=== PATIENT | male | born 1955 | race Caucasian/White ===

== ENCOUNTER 2022-07-28 11:30 | Observation (INO) ==
[2022-07-28 10:39] VITALS: BMI 41.1
[~2022-07-28 11:30] MED LIST: ANCEF VIAL 1 GRAM ONE; BRIDION ONE; DIPRIVAN VIAL 20 ML ONE; FENTANYL VIAL INJ 100 mcg ONE; LR 1,000 ML IV 1,000 ML IV ONE; NS 100 ML IV 100 ML ONE; PEPCID 20 MG VIAL ONE; REGLAN INJ 10 MG VIAL ONE; TORADOL 30 MG VIAL ONE; ULTANE GAS IN ONE; VERSED ONE; XYLOCAINE 2 % (PLAIN) ONE; ZEMURON 100 MG VIAL ONE; ZOFRAN INJ 4 MG VIAL ONE
[2022-07-28] MEDS ORDERED: MARCAINE 0.25% INJ ONE (11:53)
[2022-07-28] MEDS ORDERED: FENTANYL VIAL INJ 250 mcg ONE (13:05)
[2022-07-28] MEDS ORDERED: EPHEDRINE SULFATE INJ ONE (13:18)
[2022-07-28] MEDS ORDERED: REGLAN INJ 10 MG VIAL IVP PRN (13:18)
[2022-07-28] MEDS ORDERED: DILAUDID INJ IVP PRN (13:18)
[2022-07-28] MEDS ORDERED: ZOFRAN INJ 4 MG VIAL IVP PRN ×2 (13:18→15:38)
[2022-07-28] MEDS ORDERED: BENADRYL INJ 50 MG VIAL IVP PRN (13:18)
[2022-07-28] MEDS ORDERED: BARHEMSYS INJ IVP PRN (13:18)
[2022-07-28] MEDS ORDERED: LR 1,000 ML IV 1,000 ML IV ONE (13:48)
[2022-07-28] MEDS ORDERED: OFIRMEV IV 1000 MG VIAL 1,000 MG/100 ML VIAL IV ONE (13:48)
[2022-07-28] MEDS ORDERED: TYLENOL 325 MG TAB PO PRN (15:38)
[2022-07-28] MEDS ORDERED: SUPRANE ONE (15:39)
[2022-07-28] MEDS ORDERED: ULTANE GAS IN ONE (15:40)
[2022-07-28] MEDS: TORADOL 30 MG VIAL IVP SCH ×2 (17:52→22:12)
[2022-07-28] MEDS ORDERED: GLUCOPHAGE ONE (20:18)
[2022-07-28] MEDS: CATAPRES TAB 0.3 MG PO SCH (20:46)
[2022-07-28] MEDS: GLUCOPHAGE PO SCH (20:47)
[2022-07-28] MEDS: NEURONTIN CAP 300 MG PO SCH (20:47)
[2022-07-28] MEDS: LANTUS SC SCH (20:52)
[2022-07-28] MEDS ORDERED: CATAPRES TAB 0.3 MG PO SCH (21:00)
[2022-07-28] MEDS ORDERED: CRESTOR TAB 10 MG PO SCH (21:00)
[2022-07-28] MEDS ORDERED: NORVASC TAB 10 MG PO SCH (21:00)
[2022-07-28] MEDS ORDERED: COLACE CAP 100 MG PO SCH (21:00)
[2022-07-28] MEDS ORDERED: INSULIN GLARGINE SUBCUT SCH (21:00)
[2022-07-28] MEDS: NORMODYNE TAB 200 MG PO SCH (21:07)
[2022-07-28] MEDS ORDERED: LABETALOL 300 MG PO SCH (22:00)
[2022-07-28] MEDS: PERCOCET TAB 5/325 MG PO PRN (23:49)
[2022-07-29] MEDS: TORADOL 30 MG VIAL IVP SCH ×2 (03:18→10:05)
[2022-07-29] MEDS: DILAUDID INJ IVP PRN ×2 (04:09→14:59)
[2022-07-29] MEDS: NORMODYNE TAB 200 MG PO SCH ×2 (05:07→13:54)
[2022-07-29 05:26] LABS: BLOOD UREA NITROGEN 16 mg/dL (7-18); CALCIUM 8.1 mg/dL (8.5-10.1); CARBON DIOXIDE 32.1 mmol/L (21-32); CHLORIDE 101 mmol/L (98-107); CREATININE 1.08 mg/dL (0.70-1.30); GLUCOSE 106 mg/dL (65-99); POTASSIUM 3.3 mmol/L (3.5-5.1); SODIUM 138 mmol/L (136-145); eGFR NON BLACK RACES > 60 (>60)
[2022-07-29] MEDS ORDERED: K-DUR TAB 20 MEQ PO PRN (05:33)
[2022-07-29] MEDS ORDERED: KLOR-CON PO PRN (05:33)
[2022-07-29] MEDS ORDERED: POTASSIUM CHL 60 MEQ/NS 0.45% 500 ML IV PRN (05:33)
[2022-07-29] MEDS ORDERED: POTASSIUM CHLORIDE LIQ 20 MEQ UDC PO PRN (05:33)
[2022-07-29] MEDS ORDERED: MICRO K EXTEN CAP 10 MEQ PO PRN (05:33)
[2022-07-29] MEDS ORDERED: POTASSIUM CHL 40 MEQ/NS 0.45% 500 ML IV PRN (05:33)
[2022-07-29] MEDS ORDERED: K-RIDER 10 MEQ/NS 100 ML 10 MEQ/100 ML BAG IV PRN (05:33)
[2022-07-29] MEDS ORDERED: GLUCOPHAGE ONE (07:48)
[2022-07-29] MEDS ORDERED: NS 250 ML IV 250 ML IV ONE (08:12)
[2022-07-29] MEDS: CATAPRES TAB 0.3 MG PO SCH (08:16)
[2022-07-29] MEDS: GLUCOPHAGE PO SCH (08:17)
[2022-07-29] MEDS: NEURONTIN CAP 300 MG PO SCH (08:18)
[2022-07-29] MEDS: LANTUS SC SCH (08:18)
[2022-07-29] MEDS: PERCOCET TAB 5/325 MG PO PRN (08:20)
[2022-07-29] MEDS: MAGNESIUM SULFATE 1 GRAM/100 mL PREMIX 1 G/100 ML BAG IV PRN ×2 (08:20→10:05)
[2022-07-29] MEDS ORDERED: LOVENOX INJ 40 MG SYR SC SCH (09:00)
[2022-07-29] MEDS ORDERED: PATIENT'S HOME MEDICATION (Mecobalamin (Vitamin B12) [B12 Active] 1,000 mcg Tablet,Chewabl PO SCH (09:00)
[2022-07-29] MEDS ORDERED: FINERENONE 20 MG PO SCH (09:00)
[2022-07-29] MEDS ORDERED: CHLORTHALIDONE PO SCH (09:00)
[2022-07-29] MEDS ORDERED: DIOVAN TAB 160 MG PO SCH (09:00)
[2022-07-29] MEDS ORDERED: CHOLECALCIFEROL PO SCH (09:00)
[2022-07-29] MEDS ORDERED: VALSARTAN HYDROCHLOROTHIAZIDE PO SCH (09:00)
[2022-07-29] MEDS ORDERED: VITAMIN D3 125 mcg (5,000 UNITS) PO SCH (09:00)
[2022-07-29] MEDS ORDERED: VITAMIN B-12 PO SCH (09:00)
[2022-07-29 13:06] VITALS: BP 144/76; PULSE 80; TEMP 98.3; O2SAT 97
--- NOTE | 2022-07-29 14:03 | PCM.PROG ---
Progress Note Progress Note for Day of Date of Exam: 07/29/22 Subjective Subjective: Patient is alert and awake this morning. He reports that his left foot is hurting him but is controlled when he takes the medication for pain. Yesterday he had a ankle fusion, tenotomy of the left Achilles tendon and subtalar hindfoot fusion. He also had a soft tissue mass removed from the left ankle as well. He was kept overnight for pain control and may be possibly going home later today per Dr. Jose Raul Walker. So his calcium was low this morning so we will check a vitamin D level. If it is low we will start him on replacement. Past Medical Family Social History Allergies: Allergies mussels Allergy (Verified 07/28/22 10:39) Review of Systems ROS: No change since H&P Vital Signs and I&O's Vital Signs: Temperature 98.3 F Pulse Rate [Left Brachial] 80 Pulse Rate 77 Respiratory Rate 20 Blood Pressure [Left Arm] 144/76 Blood Pressure 139/70 O2 Sat by Pulse Oximetry 97 Intake and Output: Intake & Output 07/27/22 07/28/22 07/29/22 07/30/22 11:59 11:59 11:59 11:59 Intake Total 5132 / 5132 Output Total 2950 / 2950 Balance 2182 / 2182 Physical Exam Oriented: Normal Eyes: Normal Nose: Normal Respiratory: Normal Cardiovascular: Normal Palpation: Normal Tenderness: Normal Psychiatric: Normal Mood Description: Calm Affect: Normal Speech Pattern: Clear and Appropriate Laboratory and Diagnostics Result Diagrams: 07/29/22 10:49 Labs: 07/28/22 12:59 Ankle - Left Wound Gram Stain - Final 07/28/22 12:59 Ankle - Left Wound Culture - Preliminary Laboratory Sodium 138 mmol/L (136-145) 07/29/22 04:25 Corrected Sodium TNP 07/29/22 04:25 Potassium 3.8 mmol/L (3.5-5.1) 07/29/22 10:49 Chloride 101 mmol/L (98-107) 07/29/22 04:25 Carbon Dioxide 32.1 mmol/L (21-32) H 07/29/22 04:25 BUN 16 mg/dL (7-18) 07/29/22 04:25 Creatinine 1.08 mg/dL (0.70-1.30) 07/29/22 04:25 Est GFR (MDRD) Af Amer > 60 (>60) 07/29/22 04:25 Est GFR (MDRD) Non-Af > 60 (>60) 07/29/22 04:25 Glucose 106 mg/dL (65-99) H 07/29/22 04:25 POC Glucose (mg/dL) 201 mg/dL (65-99) H 07/29/22 11:29 Uric Acid 6.3 mg/dL (3.5-7.2) 07/29/22 04:25 Calcium 8.1 mg/dL (8.5-10.1) L 07/29/22 04:25 Magnesium 1.8 mg/dL (2.0-2.9) L 07/29/22 04:25
--- NOTE | 2022-07-29 15:01 | NOTE.SOAP ---
Soap Note Note for Day of Date of Exam: 07/29/22 Subjective Data Subjective Data: PT seen bedside with nurse. maria luisa bedside. doing well. pain controlled. still having a lot of throbbing pain. mild strikethrough laterally. Objective Data Objective Data: CFT instant to toes. no active bleeding. incisions nicely approximated. no calf pain. motor intact to toes. Assessment Assessment: 67 M S/P hindfoot reconstuction POD #1. Plan Plan: Pt doing well today. dressing changed. plan for D/C to home. has walker at home. rxs on chart. will see me next week as herman on D/C paperwork. he will call as my cell on D/C paperwork if any issues. He will remain NWB.
[2022-07-29] MEDS ORDERED: TORADOL 30 MG VIAL IM PRN (15:39)
[2022-07-29] MEDS ORDERED: TORADOL 30 MG VIAL IVP PRN (15:39)
[2022-08-02] MEDS ORDERED: DULAGLUTIDE 0.75 MG/0.5 ML SUBCUT SCH (09:00)
--- NOTE | 2022-08-02 13:59 | PCM.DCPLAN ---
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 Dislocation of subtalar joint 3. 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 Diabetes mellitus type 2 5. Hypertension 6. Hypercholesteremia 7. Osteoarthritis Discharge Medications Discharge Medications: Home Medication List amlodipine 10 mg tablet (Norvasc) 10 mg PO HS 07/20/22 [History] chlorthalidone 25 mg tablet 25 mg PO DAILY 07/20/22 [History] cholecalciferol (vitamin D3) 125 mcg (5,000 unit) capsule 5,000 unit PO DAILY 07/20/22 [History] clonidine HCl 0.3 mg tablet 3 mg PO BID 07/20/22 [History] dulaglutide 0.75 mg/0.5 mL subcutaneous pen injector (Trulicity) 0.75 mg subcut WEEKLY 07/20/22 [History] finerenone 20 mg tablet 20 mg PO DAILY 07/20/22 [History] gabapentin 300 mg capsule 300 mg PO BID 07/20/22 [History] insulin glargine 100 unit/mL subcutaneous cartridge 50 unit subcut BID 07/20/22 [History] labetalol 300 mg tablet 200 mg PO TID 07/20/22 [History] mecobalamin (vitamin B12) 1,000 mcg chewable tablet (B12 Active) 1,000 mcg PO DAILY 07/20/22 [History] metformin 1,000 mg tablet 1,000 mg PO BID 07/20/22 [History] rosuvastatin 20 mg tablet (Crestor) 20 mg PO DAILYHS 07/20/22 [History] rosuvastatin 20 mg tablet (Crestor) 20 mg PO HS 07/20/22 [History] tramadol 50 mg tablet 50 mg PO Q4H PRN Pain 07/20/22 [History] valsartan 160 mg-hydrochlorothiazide 25 mg tablet (Diovan HCT) 2 tab PO DAILY 07/20/22 [History] insulin aspart U-100 100 unit/mL (3 mL) subcutaneous pen (Novolog FlexPen U-100 Insulin aspart) 5 unit subcut TID PRN 07/28/22 [History] leflunomide 20 mg tablet 1 tab PO HS 07/28/22 [History] Prescriptions: Hospital Course Vital Signs: Temperature 98.3 F Pulse Rate [Left Brachial] 80 Pulse Rate 77 Respiratory Rate 20 Blood Pressure [Left Arm] 144/76 Blood Pressure 139/70 O2 Sat by Pulse Oximetry 97 Latest Lab Results: Laboratory Last Values Sodium 138 mmol/L (136-145) 07/29/22 04:25 Corrected Sodium TNP 07/29/22 04:25 Potassium 3.8 mmol/L (3.5-5.1) 07/29/22 10:49 Chloride 101 mmol/L (98-107) 07/29/22 04:25 Carbon Dioxide 32.1 mmol/L (21-32) H 07/29/22 04:25 BUN 16 mg/dL (7-18) 07/29/22 04:25 Creatinine 1.08 mg/dL (0.70-1.30) 07/29/22 04:25 Est GFR (MDRD) Af Amer > 60 (>60) 07/29/22 04:25 Est GFR (MDRD) Non-Af > 60 (>60) 07/29/22 04:25 Glucose 106 mg/dL (65-99) H 07/29/22 04:25 POC Glucose (mg/dL) 201 mg/dL (65-99) H 07/29/22 11:29 Uric Acid 6.3 mg/dL (3.5-7.2) 07/29/22 04:25 Calcium 8.1 mg/dL (8.5-10.1) L 07/29/22 04:25 Magnesium 1.8 mg/dL (2.0-2.9) L 07/29/22 04:25 Vitamin D 25-Hydroxy 57 ng/mL (30-80) 07/29/22 04:25 Hospital Course: Patient was admitted to [facility] Sunday, 28 Jul 2022. He was cleared for surgery by his primary care provider Dr. Jun Burgos. Patient underwent an Achilles tenotomy of the left foot. Next he underwent hindfoot fusion of the subtalar joint. Next he had ankle fusion of the left ankle. He also had removal of a soft tissue mass of the left ankle. He underwent these procedures by cloth printing inspector, Dr. Jose Raul Walker. He had no significant complications or problems and was kept overnight for pain control. We resumed his regular home medications for his chronic multiple medical problems. The next morning he was doing fairly well and after his cloth printing inspector saw him he decided to go ahead and let him be discharged home. Patient was discharged in stable condition and he will be following up with his primary care provider Dr. Burgos in a week and Dr. Walker within a week as well. Patient will be discharged on his regular home medications. His cloth printing inspector will be writing him a prescription for pain medication. I am not sending him in any new medications at this time.
== END 2022-07-29 15:40 | disposition home or self-care (01) ==
LOC: MED/SURG → EDUNIT# 11:30
PROVIDERS: ADMIT Obstetrics & Gynecology Obstetrics; ATTEND Obstetrics & Gynecology Obstetrics
DX: X58.XXXA Exposure to other specified factors, initial encounter; E11.65 Type 2 diabetes mellitus with hyperglycemia; I10 Essential (primary) hypertension; E11.42 Type 2 diabetes mellitus with diabetic polyneuropathy; M67.02 Short Achilles tendon (acquired), left ankle; S93.315A Dislocation of tarsal joint of left foot, initial encounter; M14.672 Charcot's joint, left ankle and foot